=== PATIENT | female | born 1955 | race Caucasian/White ===

== ENCOUNTER → 2020-04-11 | Outpatient (CLI) | payer MEDICARE, MEDICAID ==
--- NOTE | 2020-04-11 17:43 | Diagnostic Imaging Report ---
INDICATION: Right shoulder pain AP, oblique, and transscapular and transaxillary views of the right shoulder are obtained. No fracture or dislocation is seen. Glenohumeral joint is unremarkable. AC joint shows mild degenerative change. IMPRESSION: Mild degenerative changes of the AC joint. There is no acute abnormality. Dictated by: Dictated on workstation # [id number]
== END ==
LOC: RAD FS 14:23
PROVIDERS: ATTEND Nurse Practitioner
DX: M19.011 Primary osteoarthritis, right shoulder (principal); M75.01 Adhesive capsulitis of right shoulder
CPT/HCPCS: 73030

== ENCOUNTER → 2020-10-13 | Outpatient (CLI) | payer MEDICARE, MEDICAID ==
[~2020-10-13] MED LIST: GADOBUTROL 7.5 MMOL/7.5 ML (GADAVIST) VIAL IV ONE
[2020-10-13 15:14] LABS: ALANINE AMINOTRANSFERASE 34 U/L (0-55); ALBUMIN 3.6 GM/DL (3.2-4.5); ALKALINE PHOSPHATASE 74 U/L (40-136); BILIRUBIN,TOTAL 0.4 MG/DL (0.1-1.0); BUN/CREATININE RATIO 15; CALCIUM 9.1 MG/DL (8.5-10.1); CARBON DIOXIDE 24 MMOL/L (21-32); CHLORIDE 105 MMOL/L (98-107); CREATININE SERUM 0.92 MG/DL (0.60-1.30); GFR ESTIMATED > 60; GLUCOSE 112 MG/DL (70-105); POTASSIUM 3.6 MMOL/L (3.6-5.0); SODIUM 139 MMOL/L (135-145); TOTAL PROTEIN 7.2 GM/DL (6.4-8.2)
--- NOTE | 2020-10-13 16:30 | Diagnostic Imaging Report ---
CLINICAL INDICATION: Patient having weakness and mental status changes. EXAM: MRI of the brain performed without IV contrast. Sequences include axial DWI, ADC map, axial T2, axial FLAIR, axial T1, axial gradient echo, and sagittal T1. COMPARISON: None. FINDINGS: There is no evidence of acute cerebral infarct, intracranial hemorrhage, or gross mass effect. There is mild brain parenchymal volume loss. There are severe diffuse patchy and confluent areas of high T2 signal white matter changes seen throughout both cerebral hemispheres, periventricular regions, and asaf. There is normal davis-white matter distinction. There is no significant midline shift or herniation. The [place] vascular structures show no gross abnormality as visualized. There is a 5 mm high T2, low T1 cystic structure within the posterior sellar region. Rathke's cleft cyst or pars intermedia cyst may be considered. Otherwise, the pituitary gland, sella, and suprasellar regions are unremarkable as visualized. There is no evidence of hydrocephalus. The basal cisterns are unremarkable. The skull, extracranial soft tissue, and orbits are unremarkable. The paranasal sinuses are unremarkable. Temporal bones show no significant abnormality. IMPRESSION: 1: There is nonspecific, diffuse patchy and confluent high T2 signal white matter changes seen throughout both cerebral hemispheres, periventricular regions, and asaf which is advanced for patient's age. These findings may be seen with chronic small vessel ischemic disease and leukoaraiosis which would be advanced for patient's age. Leukoencephalopathy from post treatment changes or medications, if patient has history of cancer. Vasculitis and/or vasculopathy may be considered. Comparison to prior MRI brain imaging, if available, would better evaluate for chronicity of these findings. 2: There is a 5 mm cystic structure in the posterior aspect of the sella. This may represent a Rathke's cleft cyst or pars intermedia cyst. MRI of the pituitary gland with and without IV contrast would better evaluate. 3: The remainder of this exam is unremarkable. Dictated by: Dictated on workstation # [id number]
== END ==
LOC: RAD 14:30
PROVIDERS: ATTEND Family Medicine
DX: Z00.00 Encounter for general adult medical examination without abnormal findings (principal); G93.0 Cerebral cysts; R90.82 White matter disease, unspecified; R53.1 Weakness
CPT/HCPCS: 36415; 70551; 80053

== ENCOUNTER → 2022-04-24 | Outpatient (CLI) | payer MEDICARE, MEDICAID ==
--- NOTE | 2022-04-24 16:57 | Diagnostic Imaging Report ---
INDICATION: Bilateral hip pain EXAM: AP view pelvis and 2 additional views of each hip were obtained. The pelvic ring is intact. There is some joint space narrowing of the left hip, most notable in the superolateral aspect of the joint space. There are small osteophytes forming at the lateral margins of the joint space. The right hip joint is relatively normal. IMPRESSION: [id number] degenerative changes of the left hip. Dictated by: Dictated on workstation # [id number]
== END ==
LOC: RAD FS 15:23
PROVIDERS: ATTEND Family Medicine
DX: M25.551 Pain in right hip (principal); M16.12 Unilateral primary osteoarthritis, left hip
CPT/HCPCS: 73521

== ENCOUNTER → 2023-01-14 | Outpatient (CLI) | payer MEDICARE, MEDICAID ==
--- NOTE | 2023-01-14 16:16 | Diagnostic Imaging Report ---
EXAMINATION: Pelvic radiograph, single view. COMPARISON: April 24, 2022. HISTORY: 67-year-old female, pelvic pain. Recurrent falls. FINDINGS: The pubic symphysis is unchanged in alignment. The sacroiliac joints are unremarkable in alignment. There is a healed prior fracture of the right inferior pubic ramus. There does appear to be a nondisplaced left inferior pubic ramus fracture. There are disc and facet degenerative changes at L5-S1. IMPRESSION: 1. Probable acute nondisplaced fracture of the left inferior pubic ramus. 2. Healed prior fracture of the right inferior pubic ramus. Dictated by: Dictated on workstation # [id number]
== END ==
LOC: RAD FS 13:57
PROVIDERS: ATTEND Registered Nurse Emergency
DX: R10.2 Pelvic and perineal pain (principal); R29.6 Repeated falls; I10 Essential (primary) hypertension; Z87.81 Personal history of (healed) traumatic fracture
CPT/HCPCS: 72170